=== PATIENT | male | born 1960 ===

== ENCOUNTER 2021-12-11 11:57 | Emergency (ER) | payer MEDICAID, OTHER ==
[~2021-12-11] VITALS: Ht 172.7 cm; Wt 81.6 kg
[2021-12-11 14:39] VITALS: BP 160/98
[2021-12-11] MEDS ORDERED: KETOROLAC TROMETH 60MG/2ML VIAL IM ONE (14:45)
== END 2021-12-11 16:01 | disposition home or self-care (01) ==
LOC: EDBD 11:57 → ER 12:09
DX: M51.37 Other intervertebral disc degeneration, lumbosacral region (principal); M54.16 Radiculopathy, lumbar region; X50.0XXA Overexertion from strenuous movement or load, initial encounter; Y93.89 Activity, other specified; Y92.89 Other specified places as the place of occurrence of the external cause; Y99.8 Other external cause status
CPT/HCPCS: 72100; 96372; 99283; J1885; 93005